=== PATIENT | female | born 1985 | race African-American/Black ===

== ENCOUNTER 2022-07-02 20:02 | Emergency (ER) | payer MEDICAID, OTHER ==
[~2022-07-02] VITALS: Ht 165.1 cm; Wt 77.2 kg
[2022-07-02 20:50] VITALS: BP 137/92
[2022-07-02] MEDS ORDERED: ERY05OO OP (23:42)
[2022-07-02] MEDS ORDERED: ACET-1158 PO (23:42)
[2022-07-02] MEDS ORDERED: AMOX-277 PO (23:42)
== END 2022-07-03 00:06 | disposition home or self-care (01) ==
LOC: ER 20:02
DX: J01.90 Acute sinusitis, unspecified (principal); H10.32 Unspecified acute conjunctivitis, left eye; H66.92 Otitis media, unspecified, left ear; Z88.1 Allergy status to other antibiotic agents; Z88.6 Allergy status to analgesic agent

== ENCOUNTER 2025-05-06 11:30 | Inpatient (IN) | payer MEDICAID, OTHER ==
[~2025-05-06] VITALS: Ht 165.1 cm; Wt 85.5 kg
[~2025-05-06 11:30] MED LIST: ACET500T58 PO; AMOX875T4 PO; CIPR-173 PO; ERY05OO OP; PRED20TA2 PO
--- NOTE | 2025-05-06 11:53 | ED.PDOC ---
HPI Comments 39 y.o female with PMHx of lupus, presents to the ED for a chief complaint of substernal chest pain x 1 week. Patient reports pain presents upon deep inspiration and when laying flat. She reports pain does relief when leaning forward. She denies any SOB fever, chills, nausea, vomiting, or leg swelling. No cardiac history reported Time Seen by MD: 11:42 Reviewed Notes: Nurses Notes, Medications, Allergies Allergies: Coded Allergies: NO KNOWN ALLERGIES (Unverified , 07/02/22) Home Meds Active Scripts Ciprofloxacin Hcl (Cipro) 500 Mg Tab, 1 TAB PO BID, #14 TAB Prov:NICHOLAS ROBERTS MD 10/27/22 Prednisone (Prednisone) 20 Mg Tab, 20 MG PO BIDBRS, #14 MG Prov:NICHOLAS ROBERTS MD 10/27/22 Acetaminophen (Acetaminophen) 500 Mg Tab, 500 MG PO QIDP, #30 TAB 0 Refills Prov:BOSSMAN SINGH 07/02/22 Erythromycin (Erythromycin) 5 Mg/Gm Oin, 1 MG OP 6XD for 7 Days, #1 OIN 0 Refills Prov:BOSSMAN SINGH 07/02/22 Amoxicillin & Pot Clavulanate (Amoxicillin/Potassium Cla) 875 Mg Tab, 1 TAB PO BID for 7 Days, #14 TAB 0 Refills Prov:BOSSMAN SINGH 07/02/22 Information Source: Patient Mode of Arrival: Ambulatory Severity: Moderate Timing: Weeks (1) Duration: Since onset Location: Substernal Radiation: No Radiation Quality: Sharp Onset: At Rest Cardiac Risk Factors: None PE Risk Factors: None History of: None Modifying Factors: Position Change Associated Signs and Symptoms: None Past Medical History Past Medical History (Other): lupus Surgical History: Denies all surgeries 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[employer] History Family History Family History: Unknown Social History Smoker: Non-Smoker Alcohol: Denies ETOH Use Drugs: Denies Drug Use Lives In: Home Constitutional: denies: chills, diaphoresis, fatigue, fever, malaise, sweats, weakness, others EENTM: denies: blurred vision, double vision, ear bleeding, ear discharge, ear drainage, ear pain, ear ringing, eye pain, eye redness, hearing loss, mouth pain, mouth swelling, nasal discharge, nose bleeding, nose congestion, nose pain, photophobia, tearing, throat pain, throat swelling, voice changes, others Respiratory: denies: cough, hemoptysis, orthopnea, SOB at rest, shortness of breath, SOB with excertion, stridor, wheezing, others Cardiovascular: reports: chest pain; denies: dizzy spells, diaphoresis, Dyspnea on exertion, edema, irregular heart beat, left arm pain, lightheadedness, palpitations, PND, syncope, others Gastrointestinal: denies: abdomen distended, abdominal pain, blood streaked bowels, constipated, diarrhea, dysphagia, difficulty swallowing, hematemesis, melena, nausea, poor appetite, poor fluid intake, rectal bleeding, rectal pain, vomiting, others Genitourinary: denies: abnormal vagina bleeding, burning, dyspareunia, dysuria, flank pain, frequency, hematuria, incontinence, pain, , vagina discharge, urgency, others Neurological: denies: dizziness, fainting, headache, left sided numbness, left sided weakness, numbness, paresthesia, pre-existing deficit, right sided numbness, right sided weakness, seizure, speech problems, tingling, tremors, weakness, others Musculoskeletal: denies: back pain, gout, joint pain, joint swelling, muscle pain, muscle stiffness, neck pain, others Integumetry: denies: bruises, change in color, change in hair/nails, dryness, laceration, lesions, lumps, rash, wounds, others Allergic/Immunocompromised: denies: Difficulty Healing, Frequent Infections, Hives, Itching, others Hematologic/Lymphatic: denies: anemia, blood clots, easy bleeding, easy bruising, swollen glands, others Endocrine: denies: excessive hunger, excessive sweating, excessive thirst, excessive urination, flushing, intolerance to cold, intolerance to heat, unexplained weight gain, unexplained weight loss, others Psychiatric: denies: anxiety, bipolar disorder, depression, hopeless, panic disorder, schizophrenia, sleepless, suicidal, others All Other Systems: Reviewed and Negative Physical Exam General Appearance: Moderate Distress HEENT: Normal ENT Inspection, Pharynx Normal, TMs Normal Neck: Full Range of Motion, Non-Tender, Normal, Normal Inspection Respiratory: Chest Non-Tender, Lungs Clear, No Accessory Muscle Use, No Respiratory Distress, Normal Breath Sounds Cardiovascular: No Edema, No JVD, No Murmur, No Gallop, Normal Peripheral Pulses, Regular Rate/Rhythm Breast Exam: Deferred Gastrointestinal: No Organomegaly, Non Tender, No Pulsatile Mass, Normal Bowel Sounds, Soft Genitalia: Deferred Pelvic: Deferred Rectal: Deferred Extremities: No calf tenderness, Normal capillary refill, Normal inspection, Normal range of motion, Non-tender, No pedal edema Musculoskeletal : Apperance: Normal Neurologic: Alert, 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 Was a procedure done?: No CP Differential Dx Differential Diagnosis: A-fib, A-Flutter, Angina, Anxiety / Panic Attack, Atrial Dysrhythmia, Electrolyte Disorder Differential Diagnosis: Angina, Chest Wall Pain, Cholelithiasis, Costochondritis, Pericarditis X-Ray, Labs, Meds, VS Vital Signs Date Time Temp Pulse Resp B/P (MAP) Pulse Ox O2 Delivery O2 Flow Rate FiO2 05/06/25 13:19 98.3 104 19 127/97 (107) 98 98.3 05/06/25 13:19 104 05/06/25 12:29 100 05/06/25 11:53 105 05/06/25 11:36 105 05/06/25 11:30 99.1 110 18 121/86 98 99.1 Lab Test 05/06/25 14:48 05/06/25 13:18 05/06/25 13:05 05/06/25 12:53 Range/Units Prothrombin Time 10.8 9.3-11.8 sec Prothrombin Time INR 1.02 0.9-1.15 Activated Partial Thromboplast Time 24.5 24.5-34.5 SEC D-Dimer, Quantitative 15.08 H 0.0-0.49 mg/L FEU Magnesium Level 1.7 1.6-2.6 mg/dL Total Bilirubin 0.2 0.2-1.0 mg/dL Direct Bilirubin < 0.1 <0.3 mg/dL Aspartate Amino Transferase (AST) 26 13-40 U/L Alanine Aminotransferase (ALT) 28 7-40 U/L Alkaline Phosphatase 73 46-116 U/L Troponin I High Sensitivity < 3 L < 3 L </=34 ng/L C-Reactive Protein High Sensitivity 2.06 H <1.0 mg/dL Total Protein 7.8 5.7-8.2 g/dL Albumin 3.4 3.2-4.8 g/dL Triglycerides Level 103 < 150 mg/dL Cholesterol Level 157 < 200 mg/dL LDL Cholesterol 115 H < 100 mg/dL HDL Cholesterol 30 L 40-59 mg/dL Thyroid Stimulating Hormone (TSH) 1.84 0.55-4.78 uIU/mL POC Glucose 85 70-106 mg/dl Urine Color Yellow Yellow Urine Clarity Turbid H Clear Urine pH 6.0 5.0-9.0 Urine Specific [place] 1.026 1.001-1.035 Urine Protein 2+ H Negative Urine Ketones Negative Negative Urine Blood 3+ H Negative /uL Urine Nitrite Negative Negative Urine Bilirubin Negative Negative Urine Urobilinogen Normal Negative mg/dL Urine Leukocyte Esterase 2+ Negative /uL Urine RBC 36 0 - 4 /hpf Urine Microscopic WBC 47 H 0-5 /HPF Urine Squamous Epithelial Cells Mod <5 /hpf Urine Bacteria None seen None Seen /hpf Urine Mucus Few None Seen Urine Glucose Normal Normal mg/dL Urine Test Pending Urine Opiates Screen Pending Urine Fentanyl Screen Pending Urine Barbiturates Screen Pending Urine Phencyclidine Screen Pending Urine Amphetamines Screen Pending Urine Benzodiazepines Screen Pending Urine Cocaine Screen Pending Urine Cannabinoids Screen Pending Test 05/06/25 11:43 Range/Units White Blood Count 4.9 4.4-10.8 10^3/uL Red Blood Count 3.46 L 4.0-5.20 10^6/uL Hemoglobin 9.7 L 12.2-16.2 g/dL Hematocrit 28.4 L 36.0-46.0 % Mean Corpuscular Volume 82.1 80.0-100.0 fL Mean Corpuscular Hemoglobin 28.0 28.0-32.0 pg Mean Corpuscular Hemoglobin Concent 34.1 32.0-36.0 g/dL Red Cell Distribution Width 13.3 11.8-14.3 % Platelet Count 493 H 140-450 10^3/uL Mean Platelet Volume 6.7 L 6.9-10.8 fL Neutrophils (%) (Auto) 65.2 37.0-80.0 % Lymphocytes (%) (Auto) 27.8 10.0-50.0 % Monocytes (%) (Auto) 4.5 0.0-12.0 % Eosinophils (%) (Auto) 2.1 0.0-7.0 % Basophils (%) (Auto) 0.4 0.0-2.0 % Neutrophils # (Auto) 3.2 1.6-8.6 10 ^3/uL Lymphocytes # (Auto) 1.4 0.4-5.4 10 ^3/uL Monocytes # (Auto) 0.2 0-1.3 10 ^3/uL Eosinophils # (Auto) 0.1 0-0.8 10 ^3/uL Basophils # (Auto) 0 0-0.2 10 ^3/uL Nucleated Red Blood Cells 0.4 % Erythrocyte Sedimentation Rate 82 H 0-20 mm/hr Sodium Level 140 136-145 mmol/L Potassium Level 3.6 3.5-5.1 mmol/L Chloride Level 109 H 98-107 mmol/L Carbon Dioxide Level 23 20-31 mmol/L Anion Gap 8 5-15 Blood Urea Nitrogen 13 9-23 mg/dL Creatinine 0.89 0.550-1.02 mg/dL Glomerular Filtration Rate Calc 85 >90 mL/min BUN/Creatinine Ratio 14.6 10.0-20.0 Serum Glucose 82 74-106 mg/dL Calcium Level 8.6 L 8.7-10.4 mg/dL Troponin I High Sensitivity < 3 L </=34 ng/L B-Type Natriuretic Peptide 24.20 0-100 pg/mL Current Medications Medications (Trade) Dose Ordered Sig/Liz Route Start Time Stop Time Status Last Admin Ceftriaxone Sodium 50 ml @ 100 mls/hr ONCE ONCE IV 05/06/25 13:30 05/06/25 13:59 DC 05/06/25 13:57 Patient alert. Came in because of chest pain. Especially on deep inspiration. Pain is more so upon lying down. Possibly pericarditis. EKG reviewed does not show any acute changes pain Cardiology consultation. Possibly will need echocardiogram. Cardiac marker within normal limits. Continue monitoring. Time of 1ST Reevaluation: 11:49 Reevaluation 1ST: Unchanged Patient Education/Counseling: Diagnosis, Treatment, Prognosis Family Education/Counseling: No Family Present SEPSIS Sepsis Screen Physician Orders Electrocardigram (05/06/25 11:43) Vital Signs Date Time Temp Pulse Resp B/P (MAP) Pulse Ox O2 Delivery O2 Flow Rate FiO2 05/06/25 13:19 98.3 104 19 127/97 (107) 98 98.3 05/06/25 13:19 104 05/06/25 12:29 100 05/06/25 11:53 105 05/06/25 11:36 105 05/06/25 11:30 99.1 110 18 121/86 98 99.1 Laboratory Tests Test 05/06/25 11:43 White Blood Count 4.9 10^3/uL (4.4-10.8) Medications Medications Dose Ordered Sig/Liz Route Start Time Stop Time Status Last Admin Dose Admin Ceftriaxone Sodium 50 ml @ 100 mls/hr ONCE ONCE IV 05/06/25 13:30 05/06/25 13:59 DC 05/06/25 13:57 Departure 1 Departure Time of Disposition: 12:18 Impression: Primary Impression: Chest pain of unknown etiology Disposition: 09 ADMITTED INPATIENT Admit to: Med Surg Condition: Guarded Critical Care Note Critical Care Time?: No Stability Stability form required: No Heart Score Heart Score: Heart Score Response (Comments) Value History Moderate Suspicious 1 EKG Normal 0 Age <45 0 Risk Factors No known risk factors 0 Troponin Normal limit 0 Total 1 I personally scribed for SELINA MANN MD ([email or web address]) on 05/06/25 at 11:53. Electronically submitted by Alicia Pappas ([facility]). SELINA MANN MD May 06, 2025 11:53
[2025-05-06 12:03] LABS: Hematocrit 28.4 % (36.0-46.0); Hemoglobin 9.7 g/dL (12.2-16.2); Mean Corpuscular Hemoglobin 28.0 pg (28.0-32.0); Mean Corpuscular Volume 82.1 fL (80.0-100.0); Nucleated Red Blood Cells % 0.4 %
[2025-05-06 12:07] LABS: Potassium 3.6 mmol/L (3.5-5.1); Sodium 140 mmol/L (136-145)
[2025-05-06 12:08] LABS: Anion Gap 8 (5-15); Carbon Dioxide 23 mmol/L (20-31); Chloride 109 mmol/L (98-107)
[2025-05-06 12:09] LABS: Calcium 8.6 mg/dL (8.7-10.4)
[2025-05-06 12:13] LABS: BUN/Creatinine Ratio 14.6 (10.0-20.0); Blood Urea Nitrogen 13 mg/dL (9-23); Glucose 82 mg/dL (74-106)
[2025-05-06 13:13] LABS: Urine Protein, UAD 2+ (Negative)
[2025-05-06] MEDS ORDERED: NITROGLYCERIN 0.4 MG SL TAB SL PRN (15:30)
[2025-05-06] MEDS ORDERED: ONDANSETRON HCL 4 MG/2 ML VIAL IV PRN (15:30)
[2025-05-06] MEDS: SODIUM CHLORIDE 0.9% 1,000 ML IV SCH (15:30)
[2025-05-06] MEDS: PANTOPRAZOLE 40 MG TAB PO ONE (15:56)
[2025-05-06] MEDS ORDERED: MORPHINE SULFATE 4 MG/ML SYR/VIAL IV PRN ×2 (16:00)
[2025-05-06 16:21] LABS: INR 1.02 (0.9-1.15); Partial Thromboplastin Time 24.5 SEC (24.5-34.5); Prothrombin Time 10.8 sec (9.3-11.8)
[2025-05-06 16:23] LABS: Alanine Aminotransferase 28 U/L (7-40); Albumin 3.4 g/dL (3.2-4.8); Alkaline Phosphatase 73 U/L (46-116); Magnesium 1.7 mg/dL (1.6-2.6); Total Protein 7.8 g/dL (5.7-8.2)
[2025-05-06 16:24] LABS: Bilirubin, Direct < 0.1 mg/dL (<0.3); Bilirubin, Total 0.2 mg/dL (0.2-1.0)
--- NOTE | 2025-05-06 16:33 | DVH ---
CHEST RADIOGRAPH INDICATION: sob TECHNIQUE: Single frontal view of the chest was obtained COMPARISON: XY CHEST PORTABLE on DOS: 10/25/22 FINDINGS: Lines and Tubes: None Lungs: Bibasilar airspace disease Pleura: Bibasilar small to moderate pleural effusions. No pneumothorax. Cardiomediastinal contours: Unremarkable Bones: No acute osseous abnormality. IMPRESSION: 1. Bibasilar airspace disease with moderate pleural effusions.
[2025-05-06 16:37] LABS: Triglycerides 103 mg/dL (< 150)
[2025-05-06 16:39] LABS: Cholesterol 157 mg/dL (< 200)
[2025-05-06 16:40] LABS: HDL Cholesterol 30 mg/dL (40-59)
--- NOTE | 2025-05-06 16:43 | DVHHPRES ---
History of Present Illness Resident Creating Document: NITISH RAMIREZ RESIDENT History of Present Illness Mariya is a patient with systemic lupus erythematosus presenting with sharp stabbing chest pain that began one week ago while working. The pain is bilateral, located on both sides of the chest, and radiates to her back, neck, and left shoulder. The pain is positional, worsening when lying down, and is associated with pleuritic characteristics as it increases with deep breathing. She reports dyspnea on exertion, becoming short of breath with minimal activity such as walking across the pegu[place] to the bathroom, and experiences palpitaions. The patient had a fever this past Friday but denies other flu-like symptoms including cold, runny nose, or cough. She recently started Benlysta injections for her lupus management and has received three shots so far. She initially considered whether her symptoms might be related to the new medication. Her next lupus follow-up appointment is scheduled for May 16 for laboratory monitoring of the Benlysta therapy. The patient denies any trauma or falls. She denies other acute symptoms Medical History - Systemic lupus erythematosus Surgical history - denies Family history - not significant Medications and Supplements - Benlysta for lupus - Recently started, has received 3 shots so far - hydroxychloroquine 200 mg b.i.d. Social History - Occupation: Currently working but denies smoking, alcohol and other drug abuse Review of Systems General: Positive for fever on Friday. Cardiovascular: Positive for sharp stabbing chest pain bilaterally, pa lpitations, and chest pain radiating to back, neck, and left shoulder. Respiratory: Positive for shortness of breath with minimal exertion and pleuritic chest pain. Gastrointestinal: Negative for stomach issues. Genitourinary: Negative for urinary frequency, burning, or urgency. Musculoskeletal: Negative for joint pain with flexion. Neurological: Negative for brain issues. Review of Systems Allergies: Coded Allergies: NO KNOWN ALLERGIES (Unverified , 07/02/22) Medications Current Medications Medications Dose Ordered Sig/Liz Route Start Time Stop Time Status Last Admin Dose Admin Sodium Chloride 10 ml Q8HR IV 05/06/25 22:00 Sodium Chloride 1,000 ml @ 60 mls/hr [id number] IV 05/06/25 15:30 Ondansetron HCl 4 mg Q4HP PRN IV 05/06/25 15:30 Enoxaparin Sodium 40 mg DAILY SC 05/07/25 10:00 Multivitamins 1 tab DAILY PO 05/07/25 10:00 Acetaminophen 650 mg Q6HP PRN PO 05/06/25 15:30 Morphine Sulfate 2 mg Q4HPRN PRN IV 05/06/25 16:00 Nitroglycerin 0.4 mg Q5MINP PRN SL 05/06/25 15:30 Morphine Sulfate 2 mg Q30M PRN IV 05/06/25 16:00 Ceftriaxone Sodium 50 ml @ 100 mls/hr DAILY@09 IV 05/07/25 09:00 Pantoprazole Sodium 40 mg DAILY@0600 PO 05/07/25 06:00 Hydroxychloroquine Sulfate 200 mg BID PO 05/06/25 22:00 Ketorolac Tromethamine 15 mg Q6HPRN PRN IV 05/06/25 15:30 05/11/25 15:29 Exam Vital Signs Vital Signs Date Time Temp Pulse Resp B/P (MAP) Pulse Ox O2 Delivery O2 Flow Rate FiO2 05/06/25 16:00 97.8 108 18 135/94 (108) 100 97.8 Exam Pt is lying on bed General Appearance: Alert, Oriented X3, Cooperative, Not in acute distress HEENT: Atraumatic, Mucous membranes moist/pink Respiratory: Clear to auscultation, Normal air movement, No added sounds Cardiovascular: Regular rate, Normal S1, Normal S2, No murmurs Abdominal: Active bowel sounds, Soft, no distention, no tenderness Extremities: No edema, Normal pulses, No tenderness/swelling Skin: No Significant rash, except past surgical scars Neuro: Normal speech, sensorimotor deficits none Psych/Mental Status: Mental status NL, Mood NL Nurse 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 there as 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 during examination Labs/Xrays Labs Test 05/06/25 15:55 05/06/25 14:48 05/06/25 13:18 05/06/25 12:53 Range/Units Prothrombin Time 10.8 9.3-11.8 sec Prothrombin Time INR 1.02 0.9-1.15 Activated Partial Thromboplast Time 24.5 24.5-34.5 SEC D-Dimer, Quantitative 15.08 H 0.0-0.49 mg/L FEU Magnesium Level 1.7 1.6-2.6 mg/dL Total Bilirubin 0.2 0.2-1.0 mg/dL Direct Bilirubin < 0.1 <0.3 mg/dL Aspartate Amino Transferase (AST) 26 13-40 U/L Alanine Aminotransferase (ALT) 28 7-40 U/L Alkaline Phosphatase 73 46-116 U/L Troponin I High Sensitivity < 3 L </=34 ng/L C-Reactive Protein High Sensitivity 2.06 H <1.0 mg/dL Total Protein 7.8 5.7-8.2 g/dL Albumin 3.4 3.2-4.8 g/dL Triglycerides Level 103 < 150 mg/dL Cholesterol Level 157 < 200 mg/dL LDL Cholesterol 115 H < 100 mg/dL HDL Cholesterol 30 L 40-59 mg/dL POC Glucose 85 70-106 mg/dl Urine Color Yellow Yellow Urine Clarity Turbid H Clear Urine pH 6.0 5.0-9.0 Urine Specific [place] 1.026 1.001-1.035 Urine Protein 2+ H Negative Urine Ketones Negative Negative Urine Blood 3+ H Negative /uL Urine Nitrite Negative Negative Urine Bilirubin Negative Negative Urine Urobilinogen Normal Negative mg/dL Urine Leukocyte Esterase 2+ Negative /uL Urine RBC 36 0 - 4 /hpf Urine Microscopic WBC 47 H 0-5 /HPF Urine Squamous Epithelial Cells Mod <5 /hpf Urine Bacteria None seen None Seen /hpf Urine Mucus Few None Seen Urine Glucose Normal Normal mg/dL Test 05/06/25 11:43 Range/Units White Blood Count 4.9 4.4-10.8 10^3/uL Red Blood Count 3.46 L 4.0-5.20 10^6/uL Hemoglobin 9.7 L 12.2-16.2 g/dL Hematocrit 28.4 L 36.0-46.0 % Mean Corpuscular Volume 82.1 80.0-100.0 fL Mean Corpuscular Hemoglobin 28.0 28.0-32.0 pg Mean Corpuscular Hemoglobin Concent 34.1 32.0-36.0 g/dL Red Cell Distribution Width 13.3 11.8-14.3 % Platelet Count 493 H 140-450 10^3/uL Mean Platelet Volume 6.7 L 6.9-10.8 fL Neutrophils (%) (Auto) 65.2 37.0-80.0 % Lymphocytes (%) (Auto) 27.8 10.0-50.0 % Monocytes (%) (Auto) 4.5 0.0-12.0 % Eosinophils (%) (Auto) 2.1 0.0-7.0 % Basophils (%) (Auto) 0.4 0.0-2.0 % Neutrophils # (Auto) 3.2 1.6-8.6 10 ^3/uL Lymphocytes # (Auto) 1.4 0.4-5.4 10 ^3/uL Monocytes # (Auto) 0.2 0-1.3 10 ^3/uL Eosinophils # (Auto) 0.1 0-0.8 10 ^3/uL Basophils # (Auto) 0 0-0.2 10 ^3/uL Nucleated Red Blood Cells 0.4 % Sodium Level 140 136-145 mmol/L Potassium Level 3.6 3.5-5.1 mmol/L Chloride Level 109 H 98-107 mmol/L Carbon Dioxide Level 23 20-31 mmol/L Anion Gap 8 5-15 Blood Urea Nitrogen 13 9-23 mg/dL Creatinine 0.89 0.550-1.02 mg/dL Glomerular Filtration Rate Calc 85 >90 mL/min BUN/Creatinine Ratio 14.6 10.0-20.0 Serum Glucose 82 74-106 mg/dL Calcium Level 8.6 L 8.7-10.4 mg/dL SEPSIS Sepsis Screen Date sepsis recognized/suspect: May 06, 2025 Time Sepsis recognized/suspect: 1600 Recent Procedure: No On Antibiotic Therapy: Yes Respiratory Rate >20: No Heart Rate >90: Yes Temp<36 C (96.8 F) or >38.3 C: No SBP <90 or MAP <65 mmHG: No New Acute Mental Status Change: No Is the patient on CPAP, BIPAP,: No Physician Orders Electrocardigram (05/06/25 11:43) Admit (05/06/25 15:27) Allergies (05/06/25 15:27) Code Status (05/06/25 15:27) Sodium Chloride Lock (Saline Lock Ns) (05/06/25 22:00) Sodium Chloride 0.9% (05/06/25 15:30) Oxygen Per Hour (05/06/25 15:27) Ondansetron Hcl (Zofran) (05/06/25 15:30) Enoxaparin Sodium (Lovenox) (05/07/25 10:00) Multiple Vitamin Tablet (Mvi Tab) (05/07/25 10:00) Complete Blood Count (05/07/25 04:00) Comprehensive Metabolic Panel (05/07/25 04:00) Cardiac Diet-2gna,Lofat,Lochol (05/06/25 Dinner) Echo 2d Mode Cardiac Dop (05/06/25 15:27) Condition: Fair (05/06/25 15:27) Acetaminophen Tablet (Tylenol Tablet) (05/06/25 15:30) Nitroglycerin Sublingual (Ntrostat Subli (05/06/25 15:30) Oxygen By Nasal Cannula (05/06/25 15:27) Stat Ekg For Chest Pain (05/06/25 15:) Notify Md Of Changes From Base (05/06/25 15:) Apprentice Lineman Third Step For 24 Hours (05/06/25 15:27) Emergency Dysrhythmia Protocol (05/06/25 15:27) Rhythm Strips Once Every Shift (05/06/25 15:27) B-Type Natriuretic Peptide (05/06/25 15:27) Covid19 Antigen Ibeth (05/06/25 15:27) Erythrocyte Sedimentation Rate (05/06/25 15:27) Rapid Influenza A&B (05/06/25 15:27) Thyroid Stimulating Hormone (05/06/25 15:27) Urine Bacterial Culture (05/06/25 15:27) Respiratory Culture W/ Gs (05/06/25 15:27) Chest Portable (05/06/25 15:27) Ceftriaxone 1gm/50ml (Rocephin) (05/07/25 09:00) Pantoprazole Tablet (Protonix Tablet) (05/07/25 06:00) Hydroxychloroquine Tablet (Plaquenil Tab (05/06/25 22:00) Ketorolac Injection (Toradol Injection) (05/06/25 15:30) Morphine Sulfate Injection (05/06/25 16:00) Morphine Sulfate Injection (05/06/25 16:00) Drug Screen (05/06/25 12:53) Test, Urine (05/06/25 12:53) Iron Panel (05/06/25 16:03) Colchicine (Colcrys) (05/06/25 16:45) Vital Signs Date Time Temp Pulse Resp B/P (MAP) Pulse Ox O2 Delivery O2 Flow Rate FiO2 12/26/25 16:00 97.8 108 18 135/94 (108) 100 97.8 05/06/25 16:00 97.8 100 18 135/94 (108) 100 97.8 05/06/25 13:19 98.3 104 19 127/97 (107) 98 98.3 05/06/25 13:19 104 05/06/25 12:29 100 05/06/25 11:53 105 05/06/25 11:36 105 05/06/25 11:30 99.1 110 18 121/86 98 99.1 Laboratory Tests Test 05/06/25 11:43 White Blood Count 4.9 10^3/uL (4.4-10.8) Medications Medications Dose Ordered Sig/Liz Route Start Time Stop Time Status Last Admin Dose Admin Ceftriaxone Sodium 50 ml @ 100 mls/hr ONCE ONCE IV 05/06/25 13:30 05/06/25 13:59 DC 05/06/25 13:57 100 MLS/HR Pantoprazole Sodium 40 mg ONCE ONCE PO 05/06/25 15:30 05/06/25 15:44 DC 05/06/25 15:56 40 MG Assessment/Plan Assessment/Plan Mariya presents with sharp stabbing chest pain radiating to back, neck, and left shoulder for one week, associated with dyspnea on exertion and palpitations, in the setting of systemic lupus erythematosus and recent initiation of Benlysta therapy. Chest pain rule out ACS Likely pleuritic chest pain R/o acute pericarditis/Lupus pericarditis COVID-19 pneumonia Flu B Plan: - Telemetry admission for further evaluation - Echocardiogram to assess cardiac function and evaluate for pericardial involvement - EKG normal sinus rhythm, tachycardia sinus - troponins negative - chest pain protocol - Toradol - BNP pending - cxr -Tamiflu Acute complicated UTI/ cystitis Plan: - evident on urinalysis - ordered urine bacterial culture - currently giving Rocephin SLE- continue hydroxychloroquine GI PPX: Protonix VTE ppx: Lovenox Diet: cardiac Goals of care addressed with the patient for more than 27 minutes: Full code status Case discussed with Dr. Zapata, patient and nurse Plan discussed with: Patient, Other (rn) My Orders Orders - NITISH RAMIREZ RESIDENT Procedure Category Date Status Time Admit ADMIT 05/06/25 Transmitted 15:27 Allergies MICHELLE 05/06/25 In Process 15:27 Code Status CODE 05/06/25 Transmitted 15:27 Sodium Chloride Lock PHA 05/06/25 In Process (Saline Lock Ns) 22:00 Sodium Chloride 0.9% PHA 05/06/25 In Process 15:30 Oxygen Per Hour RT 05/06/25 Transmitted 15:27 Ondansetron Hcl PHA 05/06/25 In Process (Zofran) 15:30 Enoxaparin Sodium PHA 05/07/25 In Process (Lovenox) 10:00 Multiple Vitamin PHA 05/07/25 In Process Tablet (Mvi Tab) 10:00 Complete Blood Count LAB 05/07/25 Verified 04:00 Comprehensive LAB 05/07/25 Verified Metabolic Panel 04:00 Cardiac DIET 05/06/25 Transmitted Diet-2gna,Lofat,Lochol Dinner Echo 2d Mode Cardiac US 05/06/25 Logged DOP 15:27 Condition: Fair MICHELLE 05/06/25 In Process 15:27 Acetaminophen Tablet PHA 05/06/25 In Process (Tylenol Tablet) 15:30 Nitroglycerin PHA 05/06/25 In Process Sublingual (Ntrostat 15:30 Oxygen By Nasal RT 05/06/25 Transmitted Cannula 15:27 Stat Ekg For Chest MICHELLE 05/06/25 In Process Pain 15:27 Notify Of Changes MICHELLE 05/06/25 In Process From Base 15:27 Apprentice Lineman Third Step For MICHELLE 05/06/25 In Process 24 Hours 15:27 Emergency Dysrhythmia MICHELLE 05/06/25 In Process Protocol 15:27 Rhythm Strips Once MICHELLE 05/06/25 In Process Every Shift 15:27 B-Type Natriuretic LAB 05/06/25 In Process Peptide 15:27 Covid19 Antigen Ibeth LAB 05/06/25 In Process 15:27 Erythrocyte LAB 05/06/25 In Process Sedimentation Rate 15:27 Rapid Influenza A&B LAB 05/06/25 In Process 15:27 Thyroid Stimulating LAB 05/06/25 In Process Hormone 15:27 Urine Bacterial TONY 05/06/25 Logged Culture 15:27 Respiratory Culture TONY 05/06/25 Logged W/ Gs 15:27 Chest Portable XY 05/06/25 Resulted 15:27 Ceftriaxone 1gm/50ml PHA 05/07/25 In Process (Rocephin) 09:00 Pantoprazole Tablet PHA 05/07/25 In Process (Protonix Tablet) 06:00 Hydroxychloroquine PHA 05/06/25 In Process Tablet (Plaquenil Tab 22:00 Ketorolac Injection PHA 05/06/25 In Process (Toradol Injection) 15:30 Morphine Sulfate PHA 05/06/25 In Process Injection 16:00 Morphine Sulfate PHA 05/06/25 In Process Injection 16:00 Iron Panel LAB 05/06/25 Logged 16:03 Colchicine (Colcrys) PHA 05/06/25 Logged 16:45 Visit Coding STANDARD RES Billing Provider: ISAIAS ZAPATA MD Date of Service if different f: May 06, 2025 Common Visit Codes: 70832-[id number] INP/OBS CARE (HIGH) Secondary Visit Codes: [id number] CARE PLAN 30 MINUTES NITISH RAMIREZ RESIDENT May 06, 2025 16:43
[2025-05-06 17:01] LABS: COVID19 ANTIGEN SOFIA FIA POSITIVE (NEGATIVE)
[2025-05-06] MEDS: COLCHICINE 0.6 MG CAP PO ONE (17:09)
[2025-05-06 17:40] LABS: Amphetamine Screen, Urine Neg (NEGATIVE); Barbiturate Scree,Urine Neg (NEGATIVE); Benzodiazephine Screen, Urine Neg (NEGATIVE); Cannabinoid Screen, Urine Pos (NEGATIVE); Cocaine Screen, Urine Neg (NEGATIVE); Opiate Scree,Urine Neg (NEGATIVE); Phencyclidine Screen, Urine Neg (NEGATIVE)
[2025-05-06] MEDS: MULTIPLE VITAMIN TAB PO ONE (18:10)
[2025-05-06 18:40] VITALS: BP 132/98; PULSE 92; RESP 18; TEMP 98.3; O2SAT 97
--- NOTE | 2025-05-06 19:56 | ECG ---
[facility] Test Date: 2025-05-06 Test Time: 11:36:56 Pat Name: ABIOLA MAGDALENO Department: Room: 0232T Gender: F [place] [employer]: FREDDY : 1985 Requested By: SELINA MANN Order Number: [id number] Reading MD: Measurements Intervals [place] Rate: 105 P: 21 MA: 123 QRS: 101 QRSD: 133 T: 23 QT: 371 QTc: 491 Interpretive Statements Sinus tachycardia RBBB and LPFB Please click the below link to view image of tracing.
[2025-05-06 20:00] VITALS: PULSE 89
[2025-05-06 20:04] LABS: Iron 31.0 ug/dL (50-170); Total Iron Binding Capacity 234.0 ug/dL (250-425)
[2025-05-06] MEDS ORDERED: HYDR200T36 PO (20:07)
[2025-05-06] MEDS ORDERED: BELI200I (20:07)
[2025-05-06 21:00] VITALS: BP 133/98; PULSE 94; RESP 18; TEMP 97.8; O2SAT 97
[2025-05-06] MEDS: KETOROLAC TROMETH 30 MG/ML 1ML VIAL IV PRN (21:08)
[2025-05-06] MEDS: OSELTAMIVIR 75 MG CAP PO SCH (21:09)
[2025-05-06] MEDS: SODIUM CHLOR 0.9% PF (SALINE LOCK) 10ML VIAL/SYR IV SCH (21:09)
[2025-05-07] VITALS (7 sets, daily range): BP systolic 123–141; BP diastolic 86–100; PULSE 80–124; RESP 14–20; TEMP 97.8–100.9; O2SAT 93–97
[2025-05-07 05:43] LABS: Hematocrit 27.5 % (36.0-46.0); Hemoglobin 9.3 g/dL (12.2-16.2); Mean Corpuscular Hemoglobin 27.5 pg (28.0-32.0); Mean Corpuscular Volume 81.1 fL (80.0-100.0); Nucleated Red Blood Cells % 0.1 %
[2025-05-07] MEDS: PANTOPRAZOLE 40 MG TAB PO SCH (05:58)
[2025-05-07 06:36] LABS: Alanine Aminotransferase 17 U/L (7-40); Alkaline Phosphatase 60 U/L (46-116); Anion Gap 10 (5-15); BUN/Creatinine Ratio 15.1 (10.0-20.0); Blood Urea Nitrogen 14 mg/dL (9-23); Carbon Dioxide 22 mmol/L (20-31); Glucose 79 mg/dL (74-106); Total Protein 7.0 g/dL (5.7-8.2)
[2025-05-07 06:40] LABS: Albumin 3.1 g/dL (3.2-4.8); Bilirubin, Total 0.2 mg/dL (0.2-1.0); Calcium 8.3 mg/dL (8.7-10.4); Chloride 106 mmol/L (98-107); Potassium 3.8 mmol/L (3.5-5.1); Sodium 138 mmol/L (136-145)
[2025-05-07] MEDS ORDERED: MULTIPLE VITAMIN TAB PO SCH (10:00)
[2025-05-07] MEDS: ENOXAPARIN SOD 40 MG/0.4 ML SYRINGE SC SCH (10:07)
[2025-05-07] MEDS: MULTIPLE VITAMIN TAB PO SCH (10:07)
[2025-05-07] MEDS ORDERED: IOHEXOL 350 MG/ML 100ML IJ ONE (15:43)
--- NOTE | 2025-05-07 16:37 | DVH ---
CTA Chest with intravenous contrast INDICATION: chest pain COMPARISON: XY CHEST PORTABLE on DOS: 05/06/25, XY CHEST PORTABLE on DOS: 10/25/22 TECHNIQUE: Multidetector spiral CTA of the chest was performed of the chest with intravenous contrast. PULMONARY ANGIOGRAPHY PROTOCOL was utilized using a bolus- tracking technique centered on the main pulmonary artery. Axial, coronal and sagittal multiplanar and MIP reformats were performed. Radiation Dose : 1. Chest: CTDI volume is 20.72 mGy. Dose-length product is 420.23 mGy*cm The dose indicators for CT are the volume Computed Tomography (CT) Dose Index (CTDIvol) and the Dose Length Product (DLP), and are measured in units of mGy and mGy-cm, respectively. These indicators are not patient dose, but values generated from the CT scanner acquisition factors. The report includes radiation exposure data for exposures received during this examination. FINDINGS: Pulmonary artery: No pulmonary embolism Lower neck: Normal thyroid. Lungs: Bibasilar consolidations may reflect pneumonia or aspiration. Heart/Vascular Structures: Normal heart size. Moderate pericardial effusion. Lymph Nodes: Mediastinal and bilateral axillary lymphadenopathy is seen. Pleura: Moderate left pleural effusion. Small right pleural effusion. Musculoskeletal: No acute osseous abnormality. Soft tissues: Normal. Upper abdomen: Limited portions of the upper abdomen are unremarkable. IMPRESSION: 1. No pulmonary embolism. 2. Moderate left pleural effusion. 3. Small right pleural effusion. 4. Bibasilar consolidations may reflect pneumonia or aspiration. 5. Moderate pericardial effusion. 6. Mediastinal and bilateral axillary lymphadenopathy.
--- NOTE | 2025-05-07 17:22 | DVHPN2 ---
Subjective Still complains of chest discomfort with a deep inspirations. Patient has had a recent 20+ hour car travel from [place] to [place] three days ago. Changes from previous H/P or p: No Changes Objective Vitals Vital Signs Date Time Temp Pulse Resp B/P (MAP) Pulse Ox O2 Delivery O2 Flow Rate FiO2 05/07/25 13:00 97.8 102 14 136/95 (109) 97 97.8 05/07/25 08:00 Room Air* 0 21 Intake/Output Intake and Output 05/07/25 07:00 Intake Total 250 ml Balance 250 ml Intake Oral 200 ml IV Total 50 ml Exam Alert awake oriented x3. HEENT neck supple no JVD pupils equal round react to light. Comfortable in bed without acute cardiopulmonary distress. Heart regular rate and rhythm S1-S2. Lungs fair air movement without audible rales or wheezing. Decreased breath sounds in the bases. Abdomen soft positive bowel sounds nontender. Extremities no edema positive pulses. Medications Current Medications Medications Dose Ordered Sig/Liz Route Start Time Stop Time Status Last Admin Dose Admin Sodium Chloride 10 ml Q8HR IV 05/06/25 22:00 05/07/25 13:20 10 ML Sodium Chloride 1,000 ml @ 60 mls/hr [id number] IV 05/06/25 15:30 05/07/25 08:10 60 MLS/HR Ondansetron HCl 4 mg Q4HP PRN IV 05/06/25 15:30 Enoxaparin Sodium 40 mg DAILY SC 05/07/25 10:00 05/07/25 10:07 40 MG Acetaminophen 650 mg Q6HP PRN PO 05/06/25 15:30 Morphine Sulfate 2 mg Q4HPRN PRN IV 05/06/25 16:00 Nitroglycerin 0.4 mg Q5MINP PRN SL 05/06/25 15:30 Morphine Sulfate 2 mg Q30M PRN IV 05/06/25 16:00 Ceftriaxone Sodium 50 ml @ 100 mls/hr DAILY@09 IV 05/07/25 09:00 05/07/25 10:07 100 MLS/HR Pantoprazole Sodium 40 mg DAILY@0600 PO 05/07/25 06:00 05/07/25 05:58 40 MG Hydroxychloroquine Sulfate 200 mg BID PO 05/06/25 22:00 05/07/25 10:07 200 MG Ketorolac Tromethamine 15 mg Q6HPRN PRN IV 05/06/25 15:30 05/11/25 15:29 05/07/25 13:21 15 MG Oseltamivir Phosphate 75 mg Q12HR PO 05/06/25 22:00 05/11/25 21:59 05/07/25 10:07 75 MG Multivitamins 1 tab DAILY PO 05/07/25 10:00 05/07/25 10:07 1 TAB Famotidine 20 mg Q12HR PO 05/07/25 22:00 Indomethacin 25 mg TID PO 05/07/25 22:00 Laboratory Results Laboratory Tests 05/07/25 04:39 Chemistry Test 05/07/25 04:39 Albumin 3.1 g/dL (3.2-4.8) L Calcium Level 8.3 mg/dL (8.7-10.4) L Total Protein 7.0 g/dL (5.7-8.2) LFT Test 05/07/25 04:39 Alanine Aminotransferase (ALT) 17 U/L (7-40) Alkaline Phosphatase 60 U/L (46-116) Aspartate Amino Transferase (AST) 14 U/L (13-40) Total Bilirubin 0.2 mg/dL (0.2-1.0) Urinalysis Test 05/06/25 12:53 Urine Color Yellow (Yellow) Urine Clarity Turbid (Clear) H Urine pH 6.0 (5.0-9.0) Urine Specific [place] 1.026 (1.001-1.035) Urine Protein 2+ (Negative) H Urine Ketones Negative (Negative) Urine Blood 3+ /uL (Negative) H Urine Nitrite Negative (Negative) Urine Bilirubin Negative (Negative) Urine Urobilinogen Normal mg/dL (Negative) Urine Leukocyte Esterase 2+ /uL (Negative) Urine RBC 36 /hpf (0 - 4) Urine Microscopic WBC 47 /HPF (0-5) H Urine Squamous Epithelial Cells Mod /hpf (<5) Urine Bacteria None seen /hpf (None Seen) Urine Mucus Few (None Seen) Urine Glucose Normal mg/dL (Normal) Urine Test Negative (Negative) Microbiology Microbiology Date/Time Source Procedure Growth Status 05/06/25 12:53 Voided Urine Urine Culture - Preliminary Resulted Assessment/Plan Assessment/Plan We will order CT angiogram of the chest to rule out PE given her recent travel history. Continue treatment for her flu. Continue supportive care and treatment for COVID-19. We will have cardiac and pulmonary consultations for pericarditis/pleural effusions. I will start her on Indocin for possible pleurisy. Continue rest of supportive care and treatment. DVT GI prophylaxis. Further clinical management per clinical course and pending evaluations studies. Discussed with the patient as well as nurse at bedside regarding care plan. Plan discussed with: Patient, Other My Orders Orders - NICHOLAS ROBERTS MD Procedure Category Date Status Time Ct Angio Chest CT 05/07/25 Resulted Contrast 15:25 Famotidine Tablet PHA 05/07/25 In Process (Pepcid Tablet) 22:00 Indomethacin Capsule PHA 05/07/25 In Process (Indocin Capsule) 22:00 Basic Metabolic Panel LAB 05/08/25 Verified 04:00 Complete Blood Count LAB 05/08/25 Verified 04:00 PTPTT LAB 05/08/25 Verified 04:00 Problem List: (1) Influenza (2) COVID-19 (3) Pericardial effusion (4) Pleural effusion (5) Lupus (6) Chest pain of unknown etiology Date of Service: May 07, 2025 Billing Provider: NICHOLAS ROBERTS MD Common Visit Codes: [id number] INP/OBS CARE(HIGH) NICHOLAS ROBERTS MD May 07, 2025 17:22
--- NOTE | 2025-05-07 20:10 | DVHINCON2 ---
Date of service: May 07, 2025 Referring Physician Karlene Reason for Consultation Pericardial effusion History of Present Illness This is a 39 year old female with a PMH of SLE who presented to the ED with complaints of sharp stabbing chest pain that began one week ago while working. The pain is bilateral, located on both sides of the chest, and radiates to her back, neck, and left shoulder. The pain is positional, worsening when lying down, and is associated with pleuritic characteristics as it increases with deep breathing. She reports dyspnea on exertion, becoming short of breath with minimal activity such as walking across the [place] to the bathroom, and experiences palpitations.The patient had a fever this past Friday but denies other flu-like symptoms including cold, runny nose, or cough. She recently started Benlysta injections for her lupus management and has received three shots so far. She initially considered whether her symptoms might be related to the new medication. Her next lupus follow-up appointment is scheduled for May 16 for laboratory monitoring of the Benlysta therapy. The patient denies any trauma or falls. EKG showed tachycardia. Troponins are negative. Chest x-ray showed bibasilar airspace disease with moderate pleural effusions. CTA chest was negative for PE. There is moderate left pleural effusion, small right pleural effusion, bibasilar consolidations, moderate pericardial effusion and mediastinal and bilateral axillary lymphadenopathy. I am asked to consult on this patient. Family History: Autoimmune disorder G8 FATHER, Onset:30's - 40 (Lupus ) AUNT (lupus) Cardiovascular disease GRANDMOTHER Allergies: Coded Allergies: NO KNOWN ALLERGIES (Unverified , 07/02/22) Home Meds Active Scripts Ciprofloxacin Hcl (Cipro) 500 Mg Tab, 1 TAB PO BID, #14 TAB Prov:NICHOLAS ROBERTS MD 10/27/22 Prednisone (Prednisone) 20 Mg Tab, 20 MG PO BIDBRS, #14 MG Prov:NICHOLAS ROBERTS MD 10/27/22 Acetaminophen (Acetaminophen) 500 Mg Tab, 500 MG PO QIDP, #30 TAB 0 Refills Prov:BOSSMAN SINGH 07/02/22 Erythromycin (Erythromycin) 5 Mg/Gm Oin, 1 MG OP 6XD for 7 Days, #1 OIN 0 Refills Prov:BOSSMAN SINGH 07/02/22 Amoxicillin & Pot Clavulanate (Amoxicillin/Potassium Cla) 875 Mg Tab, 1 TAB PO BID for 7 Days, #14 TAB 0 Refills Prov:BOSSMAN SINGH 07/02/22 Reported Medications Hydroxychloroquine Sulfate (Hydroxychloroquine Sulfat) 200 Mg Tab, 1 TAB PO BID 05/06/25 Belimumab (Benlysta) 200 Mg/Ml Inj 05/06/25 Current Medications Current Medications Medications (Trade) Dose Ordered Sig/Liz Route PRN Reason Start Time Stop Time Status Last Admin Sodium Chloride (Saline Lock Ns) 10 ml Q8HR IV 05/06/25 22:00 05/07/25 13:20 Enoxaparin Sodium (Lovenox) 40 mg DAILY SC 05/07/25 10:00 05/07/25 10:07 Multivitamins (Mvi Tab) 1 tab DAILY PO 05/07/25 10:00 05/06/25 17:49 DC Ceftriaxone Sodium 50 ml @ 100 mls/hr DAILY@09 IV 05/07/25 09:00 05/07/25 10:07 Pantoprazole Sodium (Protonix Tablet) 40 mg DAILY@0600 PO 05/07/25 06:00 05/07/25 05:58 Hydroxychloroquine Sulfate (Plaquenil Tablet) 200 mg BID PO 05/06/25 22:00 05/07/25 10:07 Oseltamivir Phosphate (Tamiflu 75MG Capsule) 75 mg Q12HR PO 05/06/25 22:00 05/11/25 21:59 05/07/25 10:07 Multivitamins (Mvi Tab) 1 tab DAILY PO 05/07/25 10:00 05/07/25 10:07 Famotidine (Pepcid Tablet) 20 mg Q12HR PO 05/07/25 22:00 Indomethacin (Indocin Capsule) 25 mg TID PO 05/07/25 22:00 Review of Systems Constitutional: denies: chills, diaphoresis, fatigue, fever, malaise, sweats, weakness, others EENTM: denies: blurred vision, double vision, ear bleeding, ear discharge, ear drainage, ear pain, ear ringing, eye pain, eye redness, hearing loss, mouth pain, mouth swelling, nasal discharge, nose bleeding, nose congestion, nose pain, photophobia, tearing, throat pain, throat swelling, voice changes, others Respiratory: denies: cough, hemoptysis, orthopnea, SOB at rest, shortness of breath, SOB with excertion, stridor, wheezing, others Cardiovascular: reports: chest pain; denies: dizzy spells, diaphoresis, Dyspnea on exertion, edema, irregular heart beat, left arm pain, lightheadedness, palpitations, PND, syncope, others Gastrointestinal: denies: abdomen distended, abdominal pain, blood streaked bowels, constipated, diarrhea, dysphagia, difficulty swallowing, hematemesis, melena, nausea, poor appetite, poor fluid intake, rectal bleeding, rectal pain, vomiting, others Genitourinary: denies: abnormal vagina bleeding, burning, dyspareunia, dysuria, flank pain, frequency, hematuria, incontinence, pain, , vagina discharge, urgency, others Neurological: denies: dizziness, fainting, headache, left sided numbness, left sided weakness, numbness, paresthesia, pre-existing deficit, right sided numbness, right sided weakness, seizure, speech problems, tingling, tremors, weakness, others Musculoskeletal: denies: back pain, gout, joint pain, joint swelling, muscle pain, muscle stiffness, neck pain, others Integumetry: denies: bruises, change in color, change in hair/nails, dryness, laceration, lesions, lumps, rash, wounds, others Allergic/Immunocompromised: denies: Difficulty Healing, Frequent Infections, Hives, Itching, others Hematologic/Lymphatic: denies: anemia, blood clots, easy bleeding, easy bruising, swollen glands, others Endocrine: denies: excessive hunger, excessive sweating, excessive thirst, excessive urination, flushing, intolerance to cold, intolerance to heat, unexplained weight gain, unexplained weight loss, others Psychiatric: denies: anxiety, bipolar disorder, depression, hopeless, panic disorder, schizophrenia, sleepless, suicidal, others All Other Systems: Reviewed and Negative Vital Signs Vital Signs Date Time Temp Pulse Resp B/P (MAP) Pulse Ox O2 Delivery O2 Flow Rate FiO2 05/07/25 17:00 97.9 87 16 127/100 (109) 95 97.9 05/07/25 08:00 Room Air* 0 21 Physical Exam GENERAL: Alert and oriented x 3. No acute distress. EYES: PERRL, EOMI. Anicteric. HENT: Moist mucous membranes. LUNGS: Clear to auscultation bilaterally. CARDIOVASCULAR: Regular rate and rhythm. ABDOMEN: Soft, non-tender and non-distended. EXTREMITIES: No edema. NEUROLOGIC: No focal neurological deficits. SKIN: Warm, dry. Labs/Diagnostic Data Labs Test 05/07/25 04:39 05/06/25 19:18 05/06/25 15:55 05/06/25 14:48 Range/Units White Blood Count 4.8 4.4-10.8 10^3/uL Red Blood Count 3.39 L 4.0-5.20 10^6/uL Hemoglobin 9.3 L 12.2-16.2 g/dL Hematocrit 27.5 L 36.0-46.0 % Mean Corpuscular Volume 81.1 80.0-100.0 fL Mean Corpuscular Hemoglobin 27.5 L 28.0-32.0 pg Mean Corpuscular Hemoglobin Concent 33.9 32.0-36.0 g/dL Red Cell Distribution Width 13.4 11.8-14.3 % Platelet Count 443 140-450 10^3/uL Mean Platelet Volume 7.0 6.9-10.8 fL Neutrophils (%) (Auto) 68.3 37.0-80.0 % Lymphocytes (%) (Auto) 22.0 10.0-50.0 % Monocytes (%) (Auto) 6.4 0.0-12.0 % Eosinophils (%) (Auto) 2.8 0.0-7.0 % Basophils (%) (Auto) 0.5 0.0-2.0 % Neutrophils # (Auto) 3.3 1.6-8.6 10 ^3/uL Lymphocytes # (Auto) 1.1 0.4-5.4 10 ^3/uL Monocytes # (Auto) 0.3 0-1.3 10 ^3/uL Eosinophils # (Auto) 0.1 0-0.8 10 ^3/uL Basophils # (Auto) 0 0-0.2 10 ^3/uL Nucleated Red Blood Cells 0.1 % Sodium Level 138 136-145 mmol/L Potassium Level 3.8 3.5-5.1 mmol/L Chloride Level 106 98-107 mmol/L Carbon Dioxide Level 22 20-31 mmol/L Anion Gap 10 5-15 Blood Urea Nitrogen 14 9-23 mg/dL Creatinine 0.93 0.550-1.02 mg/dL Glomerular Filtration Rate Calc 81 >90 mL/min BUN/Creatinine Ratio 15.1 10.0-20.0 Serum Glucose 79 74-106 mg/dL Calcium Level 8.3 L 8.7-10.4 mg/dL Total Bilirubin 0.2 0.2-1.0 mg/dL Aspartate Amino Transferase (AST) 14 13-40 U/L Alanine Aminotransferase (ALT) 17 7-40 U/L Alkaline Phosphatase 60 46-116 U/L C-Reactive Protein High Sensitivity 1.51 H <1.0 mg/dL Total Protein 7.0 5.7-8.2 g/dL Albumin 3.1 L 3.2-4.8 g/dL Iron Level 31 L 50-170 ug/dL Total Iron Binding Capacity 234 L 250-425 ug/dL Percent Iron Saturation 13.2 L 15-50 % Influenza Type A Antigen Negative Negative Influenza Type B Antigen Positive Negative SARS-CoV-2 Antigen (Rapid) Positive NEGATIVE Prothrombin Time 10.8 9.3-11.8 sec Prothrombin Time INR 1.02 0.9-1.15 Activated Partial Thromboplast Time 24.5 24.5-34.5 SEC D-Dimer, Quantitative 15.08 H 0.0-0.49 mg/L FEU Magnesium Level 1.7 1.6-2.6 mg/dL Direct Bilirubin < 0.1 <0.3 mg/dL Troponin I High Sensitivity < 3 L </=34 ng/L Triglycerides Level 103 < 150 mg/dL Cholesterol Level 157 < 200 mg/dL LDL Cholesterol 115 H < 100 mg/dL HDL Cholesterol 30 L 40-59 mg/dL Thyroid Stimulating Hormone (TSH) 1.84 0.55-4.78 uIU/mL Test 05/06/25 13:18 05/06/25 12:53 05/06/25 11:43 Range/Units POC Glucose 85 70-106 mg/dl Urine Color Yellow Yellow Urine Clarity Turbid H Clear Urine pH 6.0 5.0-9.0 Urine Specific [place] 1.026 1.001-1.035 Urine Protein 2+ H Negative Urine Ketones Negative Negative Urine Blood 3+ H Negative /uL Urine Nitrite Negative Negative Urine Bilirubin Negative Negative Urine Urobilinogen Normal Negative mg/dL Urine Leukocyte Esterase 2+ Negative /uL Urine RBC 36 0 - 4 /hpf Urine Microscopic WBC 47 H 0-5 /HPF Urine Squamous Epithelial Cells Mod <5 /hpf Urine Bacteria None seen None Seen /hpf Urine Mucus Few None Seen Urine Glucose Normal Normal mg/dL Urine Test Negative Negative Urine Opiates Screen Neg NEGATIVE Urine Fentanyl Screen Neg NEGATIVE Urine Barbiturates Screen Neg NEGATIVE Urine Phencyclidine Screen Neg NEGATIVE Urine Amphetamines Screen Neg NEGATIVE Urine Benzodiazepines Screen Neg NEGATIVE Urine Cocaine Screen Neg NEGATIVE Urine Cannabinoids Screen Pos NEGATIVE Erythrocyte Sedimentation Rate 82 H 0-20 mm/hr B-Type Natriuretic Peptide 24.20 0-100 pg/mL Microbiology Date/Time Source Procedure Growth Status 05/06/25 12:53 Voided Urine Urine Culture - Preliminary Resulted Assessment Influenza. COVID-19. Pericardial effusion. Pleural effusion. Lupus. Chest pain of unknown etiology. Pericardial effusion. Plan/Recommendation I agree with your ongoing assessment and care of plan. Echocardiogram. IV antibiotics as ordered. DVT and GI prophylactics. Morphine for pain management. Nitro SL. Additional plan as per the hospital course. A total of 45 minutes was spent reviewing the patient record, examining the patient, making a diagnostic and therapeutic plan, discussing this plan with medical personnel, following up on diagnostic studies and following the patient for clinical stability excluding any and all procedures. At least 50% of this time was spent in direct, [id number] contact. Plan discussed with: Patient LAILA JEAN-BAPTISTE MD May 07, 2025 20:10
[2025-05-07] MEDS: INDOMETHACIN 25 MG CAP PO SCH (22:00)
[2025-05-07] MEDS: FAMOTIDINE 20 MG TAB PO SCH (22:27)
[2025-05-08] VITALS (9 sets, daily range): BP systolic 123–146; BP diastolic 88–98; PULSE 95–111; RESP 15–17; TEMP 98.2–99.4; O2SAT 95–99
--- NOTE | 2025-05-08 02:27 | DVHSR ---
APPROVED REPORT EXAM: Two-dimensional and M-mode echocardiogram with Doppler and color Doppler. Blood Pressure: 123/86 mmHg INDICATION Chest Pain RISK FACTORS Height: 5'5, Weight: 189 DIMENSIONS LVDd 3.7 (3.8-5.7cm) LA (2D) 3.6 (1.9-4.0cm) Aortic Root 2.9 (2.0-3.7cm) LVDs 2.2 (2.5-4.0cm) LA (MM) (1.9-4.0cm) Aortic Cusp Exc 1.7 (1.5-2.0cm) EF (%) 65.0 (55-70%) Rt. Atrium 3.1 (1.9-4.0cm) Asc. Aorta cm IVSd 0.6 (0.7-1.1cm) RV (D) 3.3 (1.8-2.4cm) PWd 0.6 (0.7-1.1cm) Mitral Valve Mitral Mitral Stenosis E wave 0.75m/s MV Mean GR. mmHg A wave 0.96m/s MV Peak GR. mmHg E/A ratio 0.8 2D MVA cm2 DECEL Time 126ms PRESS 1/2 Time ms Aortic Valve Aortic Valve Aortic Stenosis V1 1.40m/s AO Mean GR. 5mmHg V2 1.54m/s AO Peak GR. 9mmHg LVOT Diameter 2.1 (1.8-2.4cm) Doppler NIDIA 3.15cm2 Pulmonic Valve V2 0.87m/s Tricuspid Valve TR Velocity 2.39m/s RVSP 27mmHg Conclusion MILD LVH AND MILD LV DIASTOLIC DYSFUNCTION LV EF IS 65% NORMAL RV FUNCTION NORMAL VALVES NO EFFUSION
[2025-05-08 05:20] LABS: Hematocrit 26.5 % (36.0-46.0); Hemoglobin 8.9 g/dL (12.2-16.2); Mean Corpuscular Hemoglobin 27.4 pg (28.0-32.0); Mean Corpuscular Volume 81.4 fL (80.0-100.0); Nucleated Red Blood Cells % 0.2 %
[2025-05-08 05:25] LABS: Anion Gap 8 (5-15); Carbon Dioxide 22 mmol/L (20-31); Chloride 107 mmol/L (98-107); Potassium 3.8 mmol/L (3.5-5.1); Sodium 137 mmol/L (136-145)
[2025-05-08 05:27] LABS: Calcium 8.0 mg/dL (8.7-10.4)
[2025-05-08 05:31] LABS: BUN/Creatinine Ratio 13.6 (10.0-20.0); Blood Urea Nitrogen 11 mg/dL (9-23); Glucose 83 mg/dL (74-106)
[2025-05-08 05:33] LABS: INR 1.12 (0.9-1.15); Partial Thromboplastin Time 28.0 SEC (24.5-34.5); Prothrombin Time 11.7 sec (9.3-11.8)
[2025-05-08] MEDS: ACETAMINOPHEN 325 MG TAB PO PRN (08:16)
--- NOTE | 2025-05-08 18:45 | DVHPN2 ---
Subjective Pleuritic chest pain has improved. Evaluated by Cardiology had an echocardiogram shows a normal EF. Pending pulmonary eval for pleural effusion. Changes from previous H/P or p: No Changes Objective Vitals Vital Signs Date Time Temp Pulse Resp B/P (MAP) Pulse Ox O2 Delivery O2 Flow Rate FiO2 05/08/25 17:00 98.4 100 17 133/98 (110) 98 98.4 05/08/25 07:30 Room Air* 0 21 Intake/Output Intake and Output 05/08/25 07:00 Intake Total 995 ml Balance 995 ml Intake Oral 945 ml IV Total 50 ml # Voids 4 # Bowel Movements 1 Exam Alert awake oriented x3. HEENT neck supple no JVD pupils equal round react to light. Comfortable in bed without acute cardiopulmonary distress. Heart regular rate and rhythm S1-S2. Lungs fair air movement without audible rales or wheezing. Decreased breath sounds in the bases. Abdomen soft positive bowel sounds nontender. Extremities no edema positive pulses. Medications Current Medications Medications Dose Ordered Sig/Liz Route Start Time Stop Time Status Last Admin Dose Admin Sodium Chloride 10 ml Q8HR IV 05/06/25 22:00 05/08/25 14:15 10 ML Sodium Chloride 1,000 ml @ 60 mls/hr [id number] IV 05/06/25 15:30 05/08/25 17:32 60 MLS/HR Ondansetron HCl 4 mg Q4HP PRN IV 05/06/25 15:30 Enoxaparin Sodium 40 mg DAILY SC 05/07/25 10:00 05/08/25 10:06 40 MG Acetaminophen 650 mg Q6HP PRN PO 05/06/25 15:30 05/08/25 08:16 650 MG Morphine Sulfate 2 mg Q4HPRN PRN IV 05/06/25 16:00 Nitroglycerin 0.4 mg Q5MINP PRN SL 05/06/25 15:30 Morphine Sulfate 2 mg Q30M PRN IV 05/06/25 16:00 Ceftriaxone Sodium 50 ml @ 100 mls/hr DAILY@09 IV 05/07/25 09:00 05/08/25 08:16 100 MLS/HR Pantoprazole Sodium 40 mg DAILY@0600 PO 05/07/25 06:00 05/08/25 05:27 40 MG Hydroxychloroquine Sulfate 200 mg BID PO 05/06/25 22:00 05/08/25 10:06 200 MG Ketorolac Tromethamine 15 mg Q6HPRN PRN IV 05/06/25 15:30 05/11/25 15:29 05/07/25 20:36 15 MG Oseltamivir Phosphate 75 mg Q12HR PO 05/06/25 22:00 05/11/25 21:59 05/08/25 10:05 75 MG Multivitamins 1 tab DAILY PO 05/07/25 10:00 05/08/25 10:06 1 TAB Famotidine 20 mg Q12HR PO 05/07/25 22:00 05/08/25 10:06 20 MG Indomethacin 25 mg TID PO 05/07/25 22:00 05/08/25 15:14 25 MG Laboratory Results Laboratory Tests 05/08/25 04:46 Chemistry Test 05/08/25 04:46 Calcium Level 8.0 mg/dL (8.7-10.4) L Coagulation Test 05/08/25 04:46 Prothrombin Time 11.7 sec (9.3-11.8) Prothrombin Time INR 1.12 (0.9-1.15) Activated Partial Thromboplast Time 28.0 SEC (24.5-34.5) Urinalysis Test 05/06/25 12:53 Urine Color Yellow (Yellow) Urine Clarity Turbid (Clear) H Urine pH 6.0 (5.0-9.0) Urine Specific [place] 1.026 (1.001-1.035) Urine Protein 2+ (Negative) H Urine Ketones Negative (Negative) Urine Blood 3+ /uL (Negative) H Urine Nitrite Negative (Negative) Urine Bilirubin Negative (Negative) Urine Urobilinogen Normal mg/dL (Negative) Urine Leukocyte Esterase 2+ /uL (Negative) Urine RBC 36 /hpf (0 - 4) Urine Microscopic WBC 47 /HPF (0-5) H Urine Squamous Epithelial Cells Mod /hpf (<5) Urine Bacteria None seen /hpf (None Seen) Urine Mucus Few (None Seen) Urine Glucose Normal mg/dL (Normal) Urine Test Negative (Negative) Microbiology Microbiology Date/Time Source Procedure Growth Status 05/06/25 12:53 Voided Urine Urine Culture - Preliminary Resulted Assessment/Plan Assessment/Plan No PE on CT. Pleural effusion and pericardial effusion noted. Echo no pericardial effusion. Normal EF. Continue current management as she is on given she is clinically improved. Further clinical management per clinical course and recommendations from the consultants including labor mediator. Discussed with the patient and nurse regarding care plan at bedside. Plan discussed with: Patient, Other Problem List: (1) Chest pain of unknown etiology (2) Pericardial effusion (3) Pleural effusion (4) Influenza (5) Lupus (6) COVID-19 Date of Service: May 08, 2025 Billing Provider: NIHCOLAS ROBERTS MD Common Visit Codes: [id number] INP/OBS CARE(MOD) NICHOLAS ROBERTS MD May 08, 2025 18:45
--- NOTE | 2025-05-08 20:02 | DVHPN2 ---
Progress Note - Dictate Date Seen: May 08, 2025 Medical Necessity Reason Pt with a Central, PICC or Fol: No Subjective Patient was seen and evaluated in follow up. Patient is complaining of chest discomfort with deep inspirations. HGB 8.9, HCT 26.5, CA 8. Echocardiogram shows LV EF of 65%. Telemetry reviewed. vital signs Vital Sign Date Time Temp Pulse Resp B/P (MAP) Pulse Ox O2 Delivery O2 Flow Rate FiO2 05/08/25 12:31 98.2 101 16 124/91 (102) 99 98.2 05/08/25 07:30 Room Air* 0 21 Total Intake and Output 05/07/25 05/07/25 05/08/25 15:00 23:00 07:00 Intake Total 50 ml 625 ml 320 ml Balance 50 ml 625 ml 320 ml medications Current Medications Medications Dose Ordered Sig/Liz Route Start Time Stop Time Status Last Admin Dose Admin Sodium Chloride 10 ml Q8HR IV 05/06/25 22:00 05/08/25 05:27 10 ML Sodium Chloride 1,000 ml @ 60 mls/hr [id number] IV 05/06/25 15:30 05/08/25 00:51 60 MLS/HR Ondansetron HCl 4 mg Q4HP PRN IV 05/06/25 15:30 Enoxaparin Sodium 40 mg DAILY SC 05/07/25 10:00 05/08/25 10:06 40 MG Acetaminophen 650 mg Q6HP PRN PO 05/06/25 15:30 05/08/25 08:16 650 MG Morphine Sulfate 2 mg Q4HPRN PRN IV 05/06/25 16:00 Nitroglycerin 0.4 mg Q5MINP PRN SL 05/06/25 15:30 Morphine Sulfate 2 mg Q30M PRN IV 05/06/25 16:00 Ceftriaxone Sodium 50 ml @ 100 mls/hr DAILY@09 IV 05/07/25 09:00 05/08/25 08:16 100 MLS/HR Pantoprazole Sodium 40 mg DAILY@0600 PO 05/07/25 06:00 05/08/25 05:27 40 MG Hydroxychloroquine Sulfate 200 mg BID PO 05/06/25 22:00 05/08/25 10:06 200 MG Ketorolac Tromethamine 15 mg Q6HPRN PRN IV 05/06/25 15:30 05/11/25 15:29 05/07/25 20:36 15 MG Oseltamivir Phosphate 75 mg Q12HR PO 05/06/25 22:00 05/11/25 21:59 05/08/25 10:05 75 MG Multivitamins 1 tab DAILY PO 05/07/25 10:00 05/08/25 10:06 1 TAB Famotidine 20 mg Q12HR PO 05/07/25 22:00 05/08/25 10:06 20 MG Indomethacin 25 mg TID PO 05/07/25 22:00 objective GENERAL: Alert and oriented x 3. No acute distress. EYES: PERRL, EOMI. Anicteric. HENT: Moist mucous membranes. LUNGS: Clear to auscultation bilaterally. CARDIOVASCULAR: Regular rate and rhythm. ABDOMEN: Soft, non-tender and non-distended. EXTREMITIES: No edema. NEUROLOGIC: No focal neurological deficits. SKIN: Warm, dry. laboratory and microbiology Laboratory Tests 05/08/25 04:46 Test 05/08/25 04:46 Range/Units Serum Glucose 83 74-106 mg/dL Problem List Influenza. COVID-19. Pericardial effusion. Pleural effusion. Lupus. Chest pain of unknown etiology. Pericardial effusion. Assessment/Plan Continued all current supportive medical care. IV antibiotics as ordered. DVT and GI prophylactics. Morphine for pain management. Nitro SL. Additional plan as per the hospital course. Plan discussed with: Patient LAILA JEAN-BAPTISTE MD May 08, 2025 14:15
--- NOTE | 2025-05-08 23:01 | DVHINCON2 ---
Date of service: May 08, [address] Reed Reason for Consultation Pleural effusions, positive influenza and COVID. History of Present Illness A 39-year-old woman with PMHx of systemic lupus erythematosus who presented to ED on 05/06/25 with c/o sharp stabbing chest pain that began one week ago while working. The pain is bilateral, located on both sides of the chest, and radiates to her back, neck, and left shoulder. The pain is positional, worsening when lying down, and is associated with pleuritic characteristics as it increases with deep breathing. She reported dyspnea on exertion, becoming short of breath with minimal activity such as walking across the peguero to the bathroom, as well as palpitations. The patient reports recent fever (this past Friday) but denies other flu-like symptoms including cold, runny nose, or cough. She recently started Benlysta injections for her lupus management and has received three shots so far. She asks whether her symptoms might be related to the new medication. Her next lupus follow-up appointment is scheduled for May 16 for laboratory monitoring of the Benlysta therapy. The patient denies any trauma or falls. She denies other acute symptoms. Patient was admitted for further care. Pulmonary consultation is requested for evaluation and management of pleural effusions, positive influenza and COVID. Review of Systems: 14-point review of systems negative unless otherwise noted above. Past Medical History: Systemic lupus erythematosus Past Surgical History: Denies Medications: Reviewed. Allergies: No known drug allergies. Family History: No family history of premature CAD. No family history of lung disorders. Social History: Nonsmoker. No alcohol or illicit drug use. Family History: Autoimmune disorder G8 FATHER, Onset:30's - 40 (Lupus ) AUNT (lupus) Cardiovascular disease GRANDMOTHER Allergies: Coded Allergies: NO KNOWN ALLERGIES (Unverified , 07/02/22) Home Meds Active Scripts Ciprofloxacin Hcl (Cipro) 500 Mg Tab, 1 TAB PO BID, #14 TAB Prov:NICHOLAS ROBERTS MD 10/27/22 Prednisone (Prednisone) 20 Mg Tab, 20 MG PO BIDBRS, #14 MG Prov:NICHOLAS ROBERTS MD 10/27/22 Acetaminophen (Acetaminophen) 500 Mg Tab, 500 MG PO QIDP, #30 TAB 0 Refills Prov:BOSSMAN SINGH 07/02/22 Erythromycin (Erythromycin) 5 Mg/Gm Oin, 1 MG OP 6XD for 7 Days, #1 OIN 0 Refills Prov:BOSSMAN SINGH 07/02/22 Amoxicillin & Pot Clavulanate (Amoxicillin/Potassium Cla) 875 Mg Tab, 1 TAB PO BID for 7 Days, #14 TAB 0 Refills Prov:BOSSMAN SINGH 07/02/22 Reported Medications Hydroxychloroquine Sulfate (Hydroxychloroquine Sulfat) 200 Mg Tab, 1 TAB PO BID 05/06/25 Belimumab (Benlysta) 200 Mg/Ml Inj 05/06/25 Vital Signs Vital Signs Date Time Temp Pulse Resp B/P (MAP) Pulse Ox O2 Delivery O2 Flow Rate FiO2 05/08/25 21:00 98.4 95 16 134/95 (108) 97 98.4 05/08/25 20:00 Room Air* 0 21 Physical Exam Gen.: Patient lying in bed in no apparent distress. Breathing on room air. Head: Normocephalic, atraumatic. Eyes: EOMI/PERRLA. Ears: Normal hearing. Normal anatomy. Neck/trachea: Trachea midline, supple. Nose: Normal external anatomy. Mouth: Moist mucous membranes. Chest: Decreased air entry bilaterally. No wheezing or rhonchi. Cardiovascular: Positive S1, positive S2. Regular rate and rhythm. Abdomen: Positive bowel sounds in all 4 quadrants. Soft, non-tender, non- distended. : Deferred. Rectal: Deferred. Skin: Warm, dry. Intact. Extremities: 2+ radial pulses bilaterally. No lower extremity edema. Neuro: Awake, alert, oriented x3. No gross motor or sensory deficits. Cranial nerves II through XII intact. Gait not assessed. Labs/Diagnostic Data Labs Test 05/08/25 04:46 05/07/25 04:39 05/06/25 19:18 05/06/25 15:55 Range/Units White Blood Count 5.0 4.4-10.8 10^3/uL Red Blood Count 3.25 L 4.0-5.20 10^6/uL Hemoglobin 8.9 L 12.2-16.2 g/dL Hematocrit 26.5 L 36.0-46.0 % Mean Corpuscular Volume 81.4 80.0-100.0 fL Mean Corpuscular Hemoglobin 27.4 L 28.0-32.0 pg Mean Corpuscular Hemoglobin Concent 33.7 32.0-36.0 g/dL Red Cell Distribution Width 13.3 11.8-14.3 % Platelet Count 415 140-450 10^3/uL Mean Platelet Volume 6.8 L 6.9-10.8 fL Neutrophils (%) (Auto) 70.9 37.0-80.0 % Lymphocytes (%) (Auto) 18.5 10.0-50.0 % Monocytes (%) (Auto) 8.3 0.0-12.0 % Eosinophils (%) (Auto) 2.0 0.0-7.0 % Basophils (%) (Auto) 0.3 0.0-2.0 % Neutrophils # (Auto) 3.6 1.6-8.6 10 ^3/uL Lymphocytes # (Auto) 0.9 0.4-5.4 10 ^3/uL Monocytes # (Auto) 0.4 0-1.3 10 ^3/uL Eosinophils # (Auto) 0.1 0-0.8 10 ^3/uL Basophils # (Auto) 0 0-0.2 10 ^3/uL Nucleated Red Blood Cells 0.2 % Prothrombin Time 11.7 9.3-11.8 sec Prothrombin Time INR 1.12 0.9-1.15 Activated Partial Thromboplast Time 28.0 24.5-34.5 SEC Sodium Level 137 136-145 mmol/L Potassium Level 3.8 3.5-5.1 mmol/L Chloride Level 107 98-107 mmol/L Carbon Dioxide Level 22 20-31 mmol/L Anion Gap 8 5-15 Blood Urea Nitrogen 11 9-23 mg/dL Creatinine 0.81 0.550-1.02 mg/dL Glomerular Filtration Rate Calc 95 >90 mL/min BUN/Creatinine Ratio 13.6 10.0-20.0 Serum Glucose 83 74-106 mg/dL Calcium Level 8.0 L 8.7-10.4 mg/dL Total Bilirubin 0.2 0.2-1.0 mg/dL Aspartate Amino Transferase (AST) 14 13-40 U/L Alanine Aminotransferase (ALT) 17 7-40 U/L Alkaline Phosphatase 60 46-116 U/L C-Reactive Protein High Sensitivity 1.51 H <1.0 mg/dL Total Protein 7.0 5.7-8.2 g/dL Albumin 3.1 L 3.2-4.8 g/dL Iron Level 31 L 50-170 ug/dL Total Iron Binding Capacity 234 L 250-425 ug/dL Percent Iron Saturation 13.2 L 15-50 % Influenza Type A Antigen Negative Negative Influenza Type B Antigen Positive Negative SARS-CoV-2 Antigen (Rapid) Positive NEGATIVE Test 05/06/25 14:48 05/06/25 13:18 05/06/25 12:53 05/06/25 11:43 Range/Units D-Dimer, Quantitative 15.08 H 0.0-0.49 mg/L FEU Magnesium Level 1.7 1.6-2.6 mg/dL Direct Bilirubin < 0.1 <0.3 mg/dL Troponin I High Sensitivity < 3 L </=34 ng/L Triglycerides Level 103 < 150 mg/dL Cholesterol Level 157 < 200 mg/dL LDL Cholesterol 115 H < 100 mg/dL HDL Cholesterol 30 L 40-59 mg/dL Thyroid Stimulating Hormone (TSH) 1.84 0.55-4.78 uIU/mL POC Glucose 85 70-106 mg/dl Urine Color Yellow Yellow Urine Clarity Turbid H Clear Urine pH 6.0 5.0-9.0 Urine Specific [place] 1.026 1.001-1.035 Urine Protein 2+ H Negative Urine Ketones Negative Negative Urine Blood 3+ H Negative /uL Urine Nitrite Negative Negative Urine Bilirubin Negative Negative Urine Urobilinogen Normal Negative mg/dL Urine Leukocyte Esterase 2+ Negative /uL Urine RBC 36 0 - 4 /hpf Urine Microscopic WBC 47 H 0-5 /HPF Urine Squamous Epithelial Cells Mod <5 /hpf Urine Bacteria None seen None Seen /hpf Urine Mucus Few None Seen Urine Glucose Normal Normal mg/dL Urine Test Negative Negative Urine Opiates Screen Neg NEGATIVE Urine Fentanyl Screen Neg NEGATIVE Urine Barbiturates Screen Neg NEGATIVE Urine Phencyclidine Screen Neg NEGATIVE Urine Amphetamines Screen Neg NEGATIVE Urine Benzodiazepines Screen Neg NEGATIVE Urine Cocaine Screen Neg NEGATIVE Urine Cannabinoids Screen Pos NEGATIVE Erythrocyte Sedimentation Rate 82 H 0-20 mm/hr B-Type Natriuretic Peptide 24.20 0-100 pg/mL Microbiology Date/Time Source Procedure Growth Status 05/06/25 12:53 Voided Urine Urine Culture - Preliminary Resulted Assessment Impression: Influenza B COVID-19 Pleural effusion Atelectasis Marijuana use Elevated D-dimer, rule out PE Anemia Obesity Plan: On room air Supplemental oxygen PRN Titrate to keep O2 sats above 92%. CTA reviewed, no pulmonary embolism. Study notable for moderate left pleural effusion, small right pleural effusion, moderate pericardial effusion, mediastinal and axillary lymphadenopathy Continue antibiotics Tamiflu course Incentive spirometry Consult IR for left thoracentesis. Monitor renal function. Monitor electrolytes. Supplement as necessary. Monitor ins and outs. Monitor hemoglobin Transfuse if less than 7.0 g/dL. Recommend diet and lifestyle modifications for weight reduction Obesity complicates all care Recommend to avoid marijuana use. GI prophylaxis - Pepcid DVT prophylaxis - Lovenox Prognosis: Poor given patient's multiple co-morbidities. Rest of plan per hospitalist and other consultants. Thank you, Dr. Reed, for allowing me to participate in this patient's care. Further recommendations will depend on the patient's clinical course. Please do not hesitate to contact me if you have any questions or concerns. This medical document was created using an electronic medical record system with [employer] dictation system. Although these documentations are being carefully reviewed, there may still be some phonetic and typographical changes. The errors are purely typographical, due to imperfection on the software program, and do not reflect any compromise in the patient's medical care. Plan discussed with: Patient, Other (RN Robina/) Visit Coding Pulmonary Billing Provider: ESTELITA SMITH MD Date of Service if different f: May 08, 2025 Common Visit Codes: 22132-[id number] INP/OBS CARE (HIGH) ESTELITA SMITH MD May 08, 2025 23:01
[2025-05-09] VITALS (8 sets, daily range): BP systolic 129–141; BP diastolic 82–103; PULSE 87–107; RESP 16–19; TEMP 98–98.6; O2SAT 94–99
[2025-05-09 05:19] LABS: Hematocrit 26.2 % (36.0-46.0); Hemoglobin 8.8 g/dL (12.2-16.2); Mean Corpuscular Hemoglobin 27.7 pg (28.0-32.0); Mean Corpuscular Volume 82.0 fL (80.0-100.0); Nucleated Red Blood Cells % 0.0 %
[2025-05-09 05:38] LABS: Alanine Aminotransferase 11 U/L (7-40); Alkaline Phosphatase 63 U/L (46-116); Anion Gap 9 (5-15); BUN/Creatinine Ratio 10.7 (10.0-20.0); Carbon Dioxide 22 mmol/L (20-31); Glucose 77 mg/dL (74-106); Potassium 3.7 mmol/L (3.5-5.1); Sodium 139 mmol/L (136-145); Total Protein 6.5 g/dL (5.7-8.2)
[2025-05-09 05:41] LABS: Albumin 2.8 g/dL (3.2-4.8); Bilirubin, Total 0.3 mg/dL (0.2-1.0); Blood Urea Nitrogen 8 mg/dL (9-23); Calcium 7.8 mg/dL (8.7-10.4); Chloride 108 mmol/L (98-107)
--- NOTE | 2025-05-09 10:14 | DVH ---
US CHEST ULTRASOUND, HISTORY: fluid check for thoracentesis COMPARISON(S): CT CT ANGIO CHEST CONTRAST on DOS: 05/07/25, XY CHEST PORTABLE on DOS: 05/06/25, XY CHEST PORTABLE on DOS: 10/25/22 TECHNICAL DATA: Transverse and longitudinal images are obtained of the chest. FINDING: IMPRESSION(S): Small right and moderate left pleural effusion.
[2025-05-09] MEDS ORDERED: INDO-34 PO (16:08)
[2025-05-09] MEDS ORDERED: TAMIFLU PO (16:08)
[2025-05-09] MEDS ORDERED: DOXY100C79 PO (16:08)
--- NOTE | 2025-05-09 16:13 | DVHDS2 ---
Discharge Summary Date of Admission May 06, 2025 at 15:27 Date of Discharge: May 09, 2025 Labs/Diagnostic Data: Laboratory Results Test 05/09/25 04:55 05/08/25 04:46 05/07/25 04:39 05/06/25 19:18 White Blood Count 4.1 10^3/uL (4.4-10.8) Red Blood Count 3.19 10^6/uL (4.0-5.20) Hemoglobin 8.8 g/dL (12.2-16.2) Hematocrit 26.2 % (36.0-46.0) Mean Corpuscular Volume 82.0 fL (80.0-100.0) Mean Corpuscular Hemoglobin 27.7 pg (28.0-32.0) Mean Corpuscular Hemoglobin Concent 33.8 g/dL (32.0-36.0) Red Cell Distribution Width 13.2 % (11.8-14.3) Platelet Count 393 10^3/uL (140-450) Mean Platelet Volume 6.5 fL (6.9-10.8) Neutrophils (%) (Auto) 65.5 % (37.0-80.0) Lymphocytes (%) (Auto) 21.4 % (10.0-50.0) Monocytes (%) (Auto) 8.9 % (0.0-12.0) Eosinophils (%) (Auto) 3.8 % (0.0-7.0) Basophils (%) (Auto) 0.4 % (0.0-2.0) Neutrophils # (Auto) 2.7 10 ^3/uL (1.6-8.6) Lymphocytes # (Auto) 0.9 10 ^3/uL (0.4-5.4) Monocytes # (Auto) 0.4 10 ^3/uL (0-1.3) Eosinophils # (Auto) 0.2 10 ^3/uL (0-0.8) Basophils # (Auto) 0 10 ^3/uL (0-0.2) Nucleated Red Blood Cells 0.0 % Sodium Level 139 mmol/L (136-145) Potassium Level 3.7 mmol/L (3.5-5.1) Chloride Level 108 mmol/L (98-107) Carbon Dioxide Level 22 mmol/L (20-31) Anion Gap 9 (5-15) Blood Urea Nitrogen 8 mg/dL (9-23) Creatinine 0.75 mg/dL (0.550-1.02) Glomerular Filtration Rate Calc 104 mL/min (>90) BUN/Creatinine Ratio 10.7 (10.0-20.0) Serum Glucose 77 mg/dL (74-106) Calcium Level 7.8 mg/dL (8.7-10.4) Total Bilirubin 0.3 mg/dL (0.2-1.0) Aspartate Amino Transferase (AST) 13 U/L (13-40) Alanine Aminotransferase (ALT) 11 U/L (7-40) Alkaline Phosphatase 63 U/L (46-116) Total Protein 6.5 g/dL (5.7-8.2) Albumin 2.8 g/dL (3.2-4.8) Prothrombin Time 11.7 sec (9.3-11.8) Prothrombin Time INR 1.12 (0.9-1.15) Activated Partial Thromboplast Time 28.0 SEC (24.5-34.5) C-Reactive Protein High Sensitivity 1.51 mg/dL (<1.0) Iron Level 31 ug/dL (50-170) Total Iron Binding Capacity 234 ug/dL (250-425) Percent Iron Saturation 13.2 % (15-50) Test 05/06/25 15:55 05/06/25 14:48 05/06/25 13:18 05/06/25 12:53 Influenza Type A Antigen Negative (Negative) Influenza Type B Antigen Positive (Negative) SARS-CoV-2 Antigen (Rapid) Positive (NEGATIVE) D-Dimer, Quantitative 15.08 mg/L FEU (0.0-0.49) Magnesium Level 1.7 mg/dL (1.6-2.6) Direct Bilirubin < 0.1 mg/dL (<0.3) Troponin I High Sensitivity < 3 ng/L (</=34) Triglycerides Level 103 mg/dL (< 150) Cholesterol Level 157 mg/dL (< 200) LDL Cholesterol 115 mg/dL (< 100) HDL Cholesterol 30 mg/dL (40-59) Thyroid Stimulating Hormone (TSH) 1.84 uIU/mL (0.55-4.78) POC Glucose 85 mg/dl (70-106) Urine Color Yellow (Yellow) Urine Clarity Turbid (Clear) Urine pH 6.0 (5.0-9.0) Urine Specific [place] 1.026 (1.001-1.035) Urine Protein 2+ (Negative) Urine Ketones Negative (Negative) Urine Blood 3+ /uL (Negative) Urine Nitrite Negative (Negative) Urine Bilirubin Negative (Negative) Urine Urobilinogen Normal mg/dL (Negative) Urine Leukocyte Esterase 2+ /uL (Negative) Urine RBC 36 /hpf (0 - 4) Urine Microscopic WBC 47 /HPF (0-5) Urine Squamous Epithelial Cells Mod /hpf (<5) Urine Bacteria None seen /hpf (None Seen) Urine Mucus Few (None Seen) Urine Glucose Normal mg/dL (Normal) Urine Test Negative (Negative) Urine Opiates Screen Neg (NEGATIVE) Urine Fentanyl Screen Neg (NEGATIVE) Urine Barbiturates Screen Neg (NEGATIVE) Urine Phencyclidine Screen Neg (NEGATIVE) Urine Amphetamines Screen Neg (NEGATIVE) Urine Benzodiazepines Screen Neg (NEGATIVE) Urine Cocaine Screen Neg (NEGATIVE) Urine Cannabinoids Screen Pos (NEGATIVE) Test 05/06/25 11:43 Erythrocyte Sedimentation Rate 82 mm/hr (0-20) B-Type Natriuretic Peptide 24.20 pg/mL (0-100) Other Laboratory Tests 05/09/25 04:55 Brief Hx & Hospital Course: 39-year-old female with a known history of SLE currently on prednisone and hydroxychloroquine at home, chronic marijuana use, presented to the hospital with stabbing chest pain found to have COVID-19 as well as influenza B pneumonia. Patient's CT angio shows no evidence of PE but there was mediastinal and axillary lymphadenopathy. Patient was given marijuana so I cessation counseling. Patient was seen by Cardiology as well as Pulmonary. Patient does not have any pericardial effusion. Cardiology and Pulmonary cleared the patient to be discharged. Patient will be discharged on Tamiflu as well as antibiotic as well as indomethacin per pericarditis. Patient was recommended to follow up with the PCP, pulmonary in 1-2 weeks. Also patient recommended to be follow up with the PCP for iron deficiency anemia workup. Condition at Discharge: Stable Final Diagnosis/Problems List Influenza B COVID-19 Pleural effusion Atelectasis Marijuana use Elevated D-dimer, rule out PE Anemia Obesity Discharge Disposition: Home SNF Discharge Will this Physician continue t: No Discharge Instruct/Medications Diet: Cardiac 2g Na,low cholest Activity: [id number] Follow Up/Referral: Please follow up with the PCP in one week for iron-deficiency anemia workup. Follow up with the Dr. Bone with a repeat CT chest with the and without long-lasting make sure mediastinal and axillary lymphadenopathy has been resolved otherwise needs further workup Medications: Medication as prescribed. New Medications: Doxycycline (Monohydrate) (Doxycycline) 100 Mg Cap 100 MG PO BID, #14 CAP Indomethacin (Indocin) 25 Mg Cp 1 CAP PO BID, #14 CAP Oseltamivir Phosphate (Tamiflu) 75 Mg Cap 75 MG PO Q12HR for 2 Days, #4 CAP Continued Medications: Acetaminophen (Acetaminophen) 500 Mg Tab 500 MG PO QIDP, #30 TAB 0 Refills Belimumab (Benlysta) 200 Mg/Ml Inj Erythromycin (Erythromycin) 5 Mg/Gm Oin 1 MG OP 6XD for 7 Days, #1 OIN 0 Refills Hydroxychloroquine Sulfate (Hydroxychloroquine Sulfat) 200 Mg Tab 1 TAB PO BID Prednisone (Prednisone) 20 Mg Tab 20 MG PO BIDBRS, #14 MG Discontinued Medications: Amoxicillin & Pot Clavulanate (Amoxicillin/Potassium Cla) 875 Mg Tab 1 TAB PO BID for 7 Days, #14 TAB 0 Refills Ciprofloxacin Hcl (Cipro) 500 Mg Tab 1 TAB PO BID, #14 TAB Scheduled Acetaminophen (Acetaminophen), 500 MG PO QIDP Amoxicillin & Pot Clavulanate (Amoxicillin/Potassium Cla), 1 TAB PO BID Ciprofloxacin Hcl (Cipro), 1 TAB PO BID Doxycycline (Monohydrate) (Doxycycline), 100 MG PO BID Erythromycin (Erythromycin), 1 MG OP 6XD Hydroxychloroquine Sulfate (Hydroxychloroquine Sulfat), 1 TAB PO BID, (Reported) Indomethacin (Indocin), 1 CAP PO BID Oseltamivir Phosphate (Tamiflu), 75 MG PO Q12HR Prednisone (Prednisone), 20 MG PO BIDBRS Miscellaneous Medications Belimumab (Benlysta), (Reported) Discharge Statement: "Patient was advised to return to the ER or call 911 if any headaches, dizziness, shortness of breath, chest pain, abdominal pain, bleeding, fevers, or worsening of medical condition. Patient was counseled about treatment plan, medications, possible side effects, patientverbalized understanding. All questions were answered to the best of my ability. This discharge took greater then 30 minutes in planning, reviewing documentation, counseling the patient, and discussing with other team members." ASSESSMENT ASSESSMENT Assessment Influenza B COVID-19 Pleural effusion Atelectasis Marijuana use Elevated D-dimer, rule out PE Anemia Obesity Date of Service: May 09, 2025 Billing Provider: RADHA RASMUSSEN MD Common Visit Codes: 20970-OCC/OBS DISCH DAY >30min RADHA RASMUSSEN MD May 09, 2025 16:13
--- NOTE | 2025-05-09 23:10 | DVHPN2 ---
Progress Note - Dictate Date Seen: May 09, 2025 Medical Necessity Reason Pt with a Central, PICC or Fol: No Subjective Patient was seen and evaluated in follow up. Patient has no new complaints at this time. Patient denies any cardiac symptoms. Patient is cardiac stable for discharge. Telemetry reviewed. vital signs Vital Sign Date Time Temp Pulse Resp B/P (MAP) Pulse Ox O2 Delivery O2 Flow Rate FiO2 05/09/25 17:04 98.0 97 18 96 05/09/25 16:50 133/102 (112) 05/09/25 07:41 Room Air* 0 21 Total Intake and Output 05/08/25 05/08/25 05/09/25 15:00 23:00 07:00 Intake Total 50 ml 500 ml 700 ml Balance 50 ml 500 ml 700 ml objective GENERAL: Alert and oriented x 3. No acute distress. EYES: PERRL, EOMI. Anicteric. HENT: Moist mucous membranes. LUNGS: Clear to auscultation bilaterally. CARDIOVASCULAR: Regular rate and rhythm. ABDOMEN: Soft, non-tender and non-distended. EXTREMITIES: No edema. NEUROLOGIC: No focal neurological deficits. SKIN: Warm, dry. laboratory and microbiology Laboratory Tests 05/09/25 04:55 Test 05/09/25 04:55 Range/Units Serum Glucose 77 74-106 mg/dL Problem List Influenza. COVID-19. Pericardial effusion. Pleural effusion. Lupus. Chest pain of unknown etiology. Pericardial effusion. Assessment/Plan Continued all current supportive medical care. IV antibiotics as ordered. DVT and GI prophylactics. Morphine for pain management. Nitro SL. Additional plan as per the hospital course. Plan discussed with: Patient LAILA JEAN-BAPTISTE MD May 09, 2025 23:10
--- NOTE | 2025-05-09 23:41 | DVHPN2 ---
Subjective DOS: 05/09/2025 Patient seen and examined at bedside. Breathing comfortably on room air. Overnight events reviewed. Changes from previous H/P or p: No Changes Objective Vitals Vital Signs Date Time Temp Pulse Resp B/P (MAP) Pulse Ox O2 Delivery O2 Flow Rate FiO2 05/09/25 17:04 98.0 97 18 96 05/09/25 16:50 133/102 (112) 05/09/25 07:41 Room Air* 0 21 Intake/Output Intake and Output 05/09/25 07:00 Intake Total 1250 ml Balance 1250 ml Intake Oral 1200 ml IV Total 50 ml # Voids 4 # Bowel Movements 1 Exam Gen.: Patient lying in bed in no apparent distress. Breathing on room air. Head: Normocephalic, atraumatic. Eyes: EOMI/PERRLA. Ears: Normal hearing. Normal anatomy. Neck/trachea: Trachea midline, supple. Nose: Normal external anatomy. Mouth: Moist mucous membranes. Chest: Decreased air entry bilaterally. No wheezing or rhonchi. Cardiovascular: Positive S1, positive S2. Regular rate and rhythm. Abdomen: Positive bowel sounds in all 4 quadrants. Soft, non-tender, non- distended. : Deferred. Rectal: Deferred. Skin: Warm, dry. Intact. Extremities: 2+ radial pulses bilaterally. No lower extremity edema. Neuro: Awake, alert, oriented x3. No gross motor or sensory deficits. Cranial nerves II through XII intact. Gait not assessed. Laboratory Results Laboratory Tests 05/09/25 04:55 Chemistry Test 05/09/25 04:55 Albumin 2.8 g/dL (3.2-4.8) L Calcium Level 7.8 mg/dL (8.7-10.4) L Total Protein 6.5 g/dL (5.7-8.2) LFT Test 05/09/25 04:55 Alanine Aminotransferase (ALT) 11 U/L (7-40) Alkaline Phosphatase 63 U/L (46-116) Aspartate Amino Transferase (AST) 13 U/L (13-40) Total Bilirubin 0.3 mg/dL (0.2-1.0) Urinalysis Test 05/06/25 12:53 Urine Color Yellow (Yellow) Urine Clarity Turbid (Clear) H Urine pH 6.0 (5.0-9.0) Urine Specific [place] 1.026 (1.001-1.035) Urine Protein 2+ (Negative) H Urine Ketones Negative (Negative) Urine Blood 3+ /uL (Negative) H Urine Nitrite Negative (Negative) Urine Bilirubin Negative (Negative) Urine Urobilinogen Normal mg/dL (Negative) Urine Leukocyte Esterase 2+ /uL (Negative) Urine RBC 36 /hpf (0 - 4) Urine Microscopic WBC 47 /HPF (0-5) H Urine Squamous Epithelial Cells Mod /hpf (<5) Urine Bacteria None seen /hpf (None Seen) Urine Mucus Few (None Seen) Urine Glucose Normal mg/dL (Normal) Urine Test Negative (Negative) Microbiology Microbiology Date/Time Source Procedure Growth Status 05/06/25 12:53 Voided Urine Urine Culture - Final Complete Assessment/Plan Assessment/Plan Impression: Influenza B COVID-19 Pleural effusion Atelectasis Marijuana use Elevated D-dimer, rule out PE Anemia Obesity Events: Breathing on room air Supplemental oxygen PRN Limited chest ultrasound done today revealed small right and moderate left pleural effusion. IR was consulted for left thoracentesis Patient is asymptomatic, satting 97% on RA - thoracentesis procedure was deemed not necessary by IR. Continue antibiotics Tamiflu course Incentive spirometry Labs and imaging reviewed. Rest of plan as noted below. Plan: Supplemental oxygen PRN Titrate to keep O2 sats above 92%. CTA reviewed, no pulmonary embolism. Study notable for moderate left pleural effusion, small right pleural effusion, moderate pericardial effusion, mediastinal and axillary lymphadenopathy Continue antibiotics Tamiflu course Incentive spirometry Monitor renal function. Monitor electrolytes. Supplement as necessary. Monitor ins and outs. Monitor hemoglobin Transfuse if less than 7.0 g/dL. Recommend diet and lifestyle modifications for weight reduction Obesity complicates all care Recommend to avoid marijuana use. GI prophylaxis - Pepcid DVT prophylaxis - Lovenox Prognosis: Poor given patient's multiple co-morbidities. Rest of plan per hospitalist and other consultants. Thank you, Dr. Reed, for allowing me to participate in this patient's care. Further recommendations will depend on the patient's clinical course. Please do not hesitate to contact me if you have any questions or concerns. This medical document was created using an electronic medical record system with [employer] dictation system. Although these documentations are being carefully reviewed, there may still be some phonetic and typographical changes. The errors are purely typographical, due to imperfection on the software program, and do not reflect any compromise in the patient's medical care. Plan discussed with: Patient, Other (RN) Visit Coding Pulmonary Billing Provider: ESTELITA SMITH MD Date of Service if different f: May 09, 2025 Common Visit Codes: [id number] INP/OBS CARE(HIGH) ESTELITA SMITH MD May 09, 2025 23:41
== END 2025-05-09 19:00 | disposition home or self-care (01) | DRG 177 ==
LOC: ER 11:30 → OVERFLOW 15:27 → TELE-EAST 18:40
PROVIDERS: ADMIT Internal Medicine; ATTEND Internal Medicine
DX: U07.1 COVID-19 (principal); J10.01 Influenza due to other identified influenza virus with the same other identified influenza virus pneumonia; I31.39 Other pericardial effusion (noninflammatory); J90 Pleural effusion, not elsewhere classified; D64.9 Anemia, unspecified; M32.9 Systemic lupus erythematosus, unspecified; E66.9 Obesity, unspecified; J98.11 Atelectasis; I31.9 Disease of pericardium, unspecified; Z82.49 Family history of ischemic heart disease and other diseases of the circulatory system; R07.81 Pleurodynia; F12.90 Cannabis use, unspecified, uncomplicated; Z20.822 Contact with and (suspected) exposure to COVID-19; Z68.31 Body mass index [BMI] 31.0-31.9, adult; Z79.899 Other long term (current) drug therapy
CPT/HCPCS: 36415; 71045; 71275; 76604; 80048; 80053; 80061; 80076; 80307; 81001; 81025; 82962; 83540; 83550; 83735; 83880; 84443; 84484; 85025; 85379; 85610; 85652; 85730; 86141; 87086; 87426; 87804; 93005; 93306; 96365; G0378; J1885